=== PATIENT | female | born 1945 | race Caucasian/White ===

== ENCOUNTER → 2017-04-09 | Outpatient (CLI) | payer OTHER, MEDICARE ==
[~2017-04-09] MED LIST: AMLODIPINE BESY10 M1 PO; CIPROFLOXACIN250 M2 PO; CLONIDINE HCL0.1 MG PO; COZAAR100 MG PO; ECO81 PO; FLUOXETINE40 MG PO; HYDROCHLOROTHIA25 MG PO; LAC PO; LIPI10 PO; METFORMIN ER500 M1 PO; METFORMIN HCL1000 MG PO; THERAGRAN-M1 TA4 PO
== END | disposition home or self-care (01) ==
LOC: RD 11:32
DX: M25.561 Pain in right knee (principal)

== ENCOUNTER 2017-06-01 06:18 | Day surgery (SDC) | payer OTHER, MEDICARE ==
[~2017-06-01] VITALS: Ht 162.6 cm; Wt 89.3 kg
[2017-06-01 06:55] VITALS: BP 145/92
[2017-06-01 11:48] VITALS: BP 168/78
== END 2017-06-01 10:40 | disposition home or self-care (01) ==
LOC: GI 06:18
PROVIDERS: Internal Medicine Gastroenterology
PROC: 0DBL8ZZ Excision of Transverse Colon, Via Natural or Artificial Opening Endoscopic (ICD-10-PCS; principal; 2017-06-01 07:30)
DX: Z12.11 Encounter for screening for malignant neoplasm of colon (principal); K57.30 Diverticulosis of large intestine without perforation or abscess without bleeding; K64.8 Other hemorrhoids; D12.3 Benign neoplasm of transverse colon; E11.9 Type 2 diabetes mellitus without complications; I10 Essential (primary) hypertension; Z68.34 Body mass index [BMI] 34.0-34.9, adult; Z86.010 Personal history of colon polyps; Z80.0 Family history of malignant neoplasm of digestive organs
CPT/HCPCS: 45378; J1200; J1610; J2250; J2310; J3010; J3490